=== PATIENT | female | born 1935 | race Caucasian/White ===

== ENCOUNTER → 2017-05-18 | Outpatient (CLI) | payer MEDICARE ==
--- NOTE | 2017-05-19 10:42 | Diagnostic Imaging Report ---
Exam: Brain MRI without IV contrast History: Dementia Comparison studies: None. Technique: 3-D T1 with axial, coronal and sagittal reformats, axial T2, T2 FLAIR, T2*GRE and DWI. Intravenous contrast: None. Findings: Structural lesions: No intra-or extra-axial masses. No hematomas. Atrophy: General: Mild age-appropriate generalized volume loss. Focal: No disproportionate lobar, hippocampal, mesencephalic, pontine, or cerebellar atrophy. Rocha matter: Cortex: No signal abnormalities. No encephalomalacia. Basal ganglia: No atrophy or signal abnormalities. Thalami: No signal abnormalities. White matter signal intensity: A few scattered discrete and mildly confluent T2 FLAIR hyperintense signal changes in the supratentorial white matter are nonspecific but most compatible with chronic small vessel ischemic changes (Fazekas Grade 2). Micro hemorrhages: None. Subarachnoid spaces: No signal abnormalities. Ventricles: Normal in size and configuration. No hydrocephalus. Other: Skull: No bone marrow abnormalities. Vessels: Expected flow voids present in the major arteries and dural sinuses.. Sella: Normal in size. No intra-or suprasellar abnormalities. Cranio-cervical junction: No abnormalities. Patent foramen magnum. No Chiari one malformation. Paranasal sinuses and mastoids: No T2 hyperintense mucosal thickening. IMPRESSION: 1. Normal brain volume for age. No focal disproportionate atrophy. 2. Mild to moderate supratentorial chronic microvascular ischemic changes. 3. No additional intracranial abnormalities. Signed by: Dr. John Bullard M.D. on 05/19/2017 10:39 AM
== END ==
LOC: EDSEX 09:43 → MRI 09:43
PROVIDERS: ATTEND Specialist
DX: F03.90 Unspecified dementia, unspecified severity, without behavioral disturbance, psychotic disturbance, mood disturbance, and anxiety (principal)
CPT/HCPCS: 70551